=== PATIENT | male | born 1950 | race Caucasian/White ===

== ENCOUNTER 2017-02-20 09:45 | Outpatient (CLI) | payer MEDICARE, BC ==
[~2017-02-20] VITALS: Ht 167.6 cm; Wt 67.7 kg
[~2017-02-20 09:45] MED LIST: DOXA1TAB PO
[2017-02-20 10:00] VITALS: Ht 167.6 cm; Wt 67.7 kg
[2017-02-20 10:01] VITALS: BP 115/72; PULSE 69; RESP 16
--- NOTE | 2017-02-20 10:23 | PN ---
Date/Time of Note Date/Time of Note DATE: 02/20/17 TIME: 10:10 Assessment/Plan Assessment/Plan Assessment/Plan [facility] Progress Note Date of Service: 02/20/17 Today's Assessment & Plan: Overall stable with some abdominal issues that do not seem to be surgically related. No new labs to assess, but recent CT Abd/Pelvis 01/16/17 was unremarkable. No obvious head of pancreas issue. Given stent removal was on , chances of a procedure related issue or ongoing CBD issue is also low. Differential includes viral gastroenteritis. This issue needs further work up. Fortunately, no obvious surgical issues. With above assessment, I've recommended the following for today: 1. F/u with Dr. Wright for further workup of symptoms 2. Possible need to follow up with Dr. Mcdermott 3. F/u with us if needed Thank you again for allowing us to continue to be involved in the care of this very pleasant gentleman and his wonderful family. If there are any questions, please feel free to call me at [phone]. TOTAL VISIT TIME: 20 minutes of which more than half was spent in [id number] discussion with the patient as well as coordination of care between multiple physicians and providers. Disclaimer: Inadvertent spelling and grammatical errors are likely due to EHR/ dictation software use and do not reflect on the quality of delivered patient care. Also, please note that the electronic time recorded on this node does not necessarily reflect the actual time of the visit. 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 S/p lap laurie 05/10/16 for acute cholecystitis. S/p CBD stent removal 12/24/16. CT Abd/Pelvis 01/16/17 was unremarkable without any obvious head of pancreas issues. Patient with abdominal pain, nausea, vomiting and complaint of dark urine end of January 2017. Comorbidities: 1. Status post anterior thoracic spine approach. 2. Status post inguinal hernia repair. 3. Status post appendectomy (open). 4. 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 5. Status post lap laurie 8/18/16 for acute cholecystitis. 6. S/p CBD stent removal 12/24/16. CT Abd/Pelvis 01/16/17 was unremarkable without any obvious head of pancreas issues. Subjective: No major events or complaints other than above; main complaint today is several days of abdominal pain, nausea, vomiting and report of dark urine. No sob or cp. No cough, no fever, no chills, and no other symptoms. Objective: Vitals: See below Exam: GENERAL: On exam, the patient was sitting up in a chair and appeared to be comfortable and in no acute distress. ABDOMEN: Soft, nontender and nondistended. Incisions c/d/i w/o obvious e/e/d/h. There are no peritoneal signs or guarding. SKIN: Skin appears to be pink and feels warm to touch. NEUROLOGIC: Patient is awake, alert, and follows commands. Exam/Review of Systems Vital Signs Vitals Vital Signs Date Time Temp Pulse Resp B/P Pulse Ox O2 Delivery O2 Flow Rate FiO2 02/20/17 10:01 97.7 69 16 115/72 97 Room Air TY BURNS M.D. February 20, 2017 10:22
== END 2017-02-20 15:35 | disposition home or self-care (01) ==
LOC: HPC 09:45
PROVIDERS: ATTEND Transplant Surgery
DX: R10.9 Unspecified abdominal pain (principal); R11.2 Nausea with vomiting, unspecified; R82.99 Other abnormal findings in urine
CPT/HCPCS: G0463